=== PATIENT | female | born 1970 | race Caucasian/White ===

== ENCOUNTER 2017-06-27 17:25 | Emergency (ER) | payer SELFPAY ==
[2017-06-27 17:58] LABS: VBG PH 7.37 (7.31-7.41); VBG TOTAL CO2 29.3 mmol/L (24-29)
[2017-06-27 17:59] LABS: BASOPHILS % (AUTO) 0.6 %; EOSINOPHILS # (AUTO) 0.1 10^3/uL (0.0-0.7); EOSINOPHILS % (AUTO) 1.6 %; HCT - HEMATOCRIT 40.6 % (37.0-47.0); HGB - HEMOGLOBIN 13.8 g/dL (12.0-16.0); LYMPHOCYTES # (AUTO) 2.1 10^3/uL (1.5-3.5); LYMPHOCYTES % (AUTO) 31.3 %; MEAN CORPUSCULAR HEMOGLOBIN 29.2 pg (27.0-31.0); MEAN CORPUSCULAR HGB CONC 33.9 g/dL (32.0-36.0); MEAN CORPUSCULAR VOLUME 86.2 fL (81.0-99.0); MEAN PLATELET VOLUME 8.6 fL (7.9-10.8); MONOCYTES # (AUTO) 0.4 10^3/uL (0.0-1.0); MONOCYTES % (AUTO) 5.8 %; NEUTROPHILS % (AUTO) 60.7 %; NUCLEATED RED BLOOD CELLS AUTO 0.1 /100WBC; RED BLOOD COUNT 4.71 10^6/uL (4.20-5.40); RED CELL DISTRIBUTION WIDTH 12.1 % (12.0-15.0); UNCORRECTED WHITE BLOOD COUNT 6.6 x10^3/uL; VBG BASE EXCESS 1.7 mmol/L (-2 - +2); VBG OXYGEN SATURATION 50.9 % (60-80); WHITE BLOOD COUNT 6.6 x10^3/uL (4.8-10.8)
[2017-06-27 18:11] LABS: ALBUMIN/GLOBULIN RATIO 1.3 (1.0-2.2); BILIRUBIN,TOTAL 0.3 mg/dL (0.2-1.0); BUN - BLOOD UREA NITROGEN 16 mg/dL (6-20); CALCIUM 9.7 mg/dL (8.5-10.3); CARBON DIOXIDE - CO2 27 mmol/L (21-32); CHLORIDE 98 mmol/L (101-111); CREATININE 0.7 mg/dL (0.4-1.0); GFR - MDRD 90 (>89); GLUCOSE 350 mg/dL (70-100); LIPASE 43 U/L (22-51); SODIUM 134 mmol/L (135-145); TOTAL PROTEIN 7.2 g/dL (6.7-8.2)
[2017-06-27] MEDS ORDERED: BUTALB/ACETAM/CAFF 50/325/40MG TABLET PO STA (18:33)
[2017-06-27] MEDS ORDERED: INSULIN REGULAR HUMAN 100 UNIT/1 ML 10 ML MDV SUBQ STA (18:33)
--- NOTE | 2017-06-27 18:35 | ED Physician Documentation ---
History of Present Illness - Stated complaint Stated Complaint: AVILA,WEAKNESS - Chief complaint Chief Complaint: General - History obtained from History obtained from: Patient, Family - History of Present Illness Timing: Today Pain level max: 5 Pain level now: 5 - Additonal information Additional information: Patient is a 47-year-old female who presents to the emergency department with several complaints, the first is hyperglycemia. She is on metformin and has been a diabetic for several years. Denies any recent illness. She states that she developed a headache today as well, gradual onset, holoacranial. Has not taken anything for the pain. Patient also states that when she holds her hands up too long, her tips of her fingers become "sleepy". This resolves when she puts her hands down. Currently is not feeling the symptoms in the hands Review of Systems Constitutional: denies: Fever, Chills Eyes: denies: Decreased vision Ears: denies: Ear pain Nose: denies: Rhinorrhea / runny nose, Congestion Throat: denies: Sore throat Cardiac: denies: Chest pain / pressure Respiratory: denies: Cough, Wheezing GI: denies: Abdominal Pain, Nausea, Vomiting, Diarrhea Skin: denies: Rash Musculoskeletal: denies: Neck pain, Back pain PD PAST MEDICAL HISTORY - Present Medications Home Medications: Ambulatory Orders Medication Instructions Recorded Confirmed Glibenclamida 5 mg PO BID 06/27/17 06/27/17 Metformin HCl 1,000 mg PO BID #20 tablet 06/27/17 Metoprolol Tartrate [Lopressor] 40 mg PO BID 06/27/17 06/27/17 metFORMIN [Glucophage] 850 mg PO BID 06/27/17 06/27/17 - Allergies Allergies/Adverse Reactions: Allergies Allergy/AdvReac Type Severity Reaction Status Date / Time No Known Drug Allergies Allergy Verified 06/27/17 17:37 PD ED PE NORMAL - Vitals Vital signs reviewed: Yes - General General: Alert and oriented X 3, No acute distress, Well developed/nourished - HEENT HEENT: PERRL, Ears normal, Moist mucous membranes, Pharynx benign - Neck Neck: Supple, no meningeal sign, No bony TTP, No adenopathy, No JVD - Cardiac Cardiac: RRR, Strong equal pulses - Respiratory Respiratory: No respiratory distress, Clear bilaterally - Abdomen Abdomen: Normal bowel sounds, Soft, Non tender, Non distended - Back Back: No spinal TTP - Derm Derm: Warm and dry, No rash - Extremities Extremities: Normal ROM s pain - Neuro Neuro: Alert and oriented X 3, pr manager 2-12 intact, No motor deficit, No sensory deficit, Normal speech - Psych Psych: Normal mood, Normal affect Results - Vitals Vitals: Vital Signs - 24 hr 06/27/17 06/27/17 17:33 20:01 Temperature 36.3 C L 36.3 C L Heart Rate 79 78 Respiratory 16 20 Rate Blood Pressure 200/98 H 124/90 H O2 Saturation 98 99 Oxygen O2 Source Room air - Labs Labs: Laboratory Tests 06/27/17 06/27/17 06/27/17 17:50 17:50 17:50 WBC 6.6 RBC 4.71 Hgb 13.8 Hct 40.6 MCV 86.2 MCH 29.2 MCHC 33.9 RDW 12.1 Plt Count 239 MPV 8.6 Neut # 4.0 Lymph # 2.1 [place] # 0.4 Eos # 0.1 Baso # 0.0 Absolute Nucleated RBC 0.01 Nucleated RBCs 0.1 VBG pH 7.370 VBG pCO2 49.2 VBG pO2 26.1 VBG HCO3 27.8 VBG Total CO2 29.3 H VBG O2 Saturation 50.9 L VBG Base Excess 1.7 Sodium 134 L Potassium 4.0 Chloride 98 L Carbon Dioxide 27 Anion Gap 9.0 BUN 16 Creatinine 0.7 Estimated GFR (MDRD) 90 Glucose 350 H POC Whole Bld Glucose Calcium 9.7 Total Bilirubin 0.3 AST 16 ALT 15 Alkaline Phosphatase 88 Total Protein 7.2 Albumin 4.1 Globulin 3.1 Albumin/Globulin Ratio 1.3 Lipase 43 Serum Ketones NEGATIVE 06/27/17 06/27/17 19:06 20:02 WBC RBC Hgb Hct MCV MCH MCHC RDW Plt Count MPV Neut # Lymph # [place] # Eos # Baso # Absolute Nucleated RBC Nucleated RBCs VBG pH VBG pCO2 VBG pO2 VBG HCO3 VBG Total CO2 VBG O2 Saturation VBG Base Excess Sodium Potassium Chloride Carbon Dioxide Anion Gap BUN Creatinine Estimated GFR (MDRD) Glucose POC Whole Bld Glucose 298 H 286 H Calcium Total Bilirubin AST ALT Alkaline Phosphatase Total Protein Albumin Globulin Albumin/Globulin Ratio Lipase Serum Ketones PD MEDICAL DECISION MAKING - ED course Complexity details: reviewed results, re-evaluated patient, considered differential, d/w patient, d/w family ED course: Patient is a 47-year-old female who presents to the emergency department with a headache and hyperglycemia. Given insulin subcu and her blood glucose decreased. She is not in DKA. Headache resolved in the emergency department with Fioricet. Blood pressure also decreased. Will increase her metformin from 850 up to 1000 mg twice a day while she is visiting from [place]. Unclear etiology of the paresthesias in her hands, but is likely related to poorly controlled diabetes. Neurovascularly intact here. Patient counseled regarding signs and symptoms for which I believe and urgent re-evaluation would be necessary. Patient with good understanding of and agreement to plan and is comfortable going home at this time This document was made in part using voice recognition software. While efforts are made to proofread this document, sound alike and grammatical errors may occur. Departure - Departure Disposition: 01 Home, Self Care Clinical Impression: Hyperglycemia, Paresthesia Headache Qualifiers: Headache type: unspecified Headache chronicity pattern: acute headache Intractability: not intractable Qualified Code(s): R51 - Headache Hypertension Qualifiers: Hypertension type: unspecified Qualified Code(s): I10 - Essential (primary) hypertension Condition: Good Instructions: ED Cephalgia Unspecified, ED HTN Established, ED Hyperglycemia Diabetic Follow-Up: your,doctor in 1 week [Other] Prescriptions: Metformin HCl 1,000 mg PO BID #20 tablet Comments: Stop your metformin and start the new dosage. Return if you worsen. The tingling in your hands may be related to your diabetes, and it is important that you get better control of your blood sugars. Your blood pressure was elevated today on check in to the emergency department. This does not mean that you have hypertension, it is a common phenomenon to check into the emergency department and have elevated blood pressure. I recommend that you see your primary care physician within the week to have it rechecked when you're feeling better. Discharge Date/Time: 06/27/17 20:06
[2017-06-27] MEDS ORDERED: INSULIN ASPART 100 UNIT/1 ML 10 ML MDV SUBQ ONE (19:21)
[2017-06-27 20:02] VITALS: BP 124/90
== END 2017-06-27 20:06 | disposition home or self-care (01) ==
LOC: ED 17:25
DX: E11.65 Type 2 diabetes mellitus with hyperglycemia (principal); Z79.84 Long term (current) use of oral hypoglycemic drugs; I10 Essential (primary) hypertension; R20.2 Paresthesia of skin; R51 Headache
CPT/HCPCS: 36415; 80053; 82009; 82803; 83690; 85025; 96372; 99283; A9270

== ENCOUNTER 2017-07-26 00:33 | Emergency (ER) | payer SELFPAY ==
[2017-07-26] MEDS ORDERED: SODIUM CHLORIDE 0.9% 1,000 ML IV ONE ×2 (00:56→01:51)
--- NOTE | 2017-07-26 01:09 | ED Physician Documentation ---
History of Present Illness - Stated complaint Stated Complaint: HIGH BLOOD PRESSURE - History obtained from History obtained from: Patient, Family - Additonal information Additional information: Patient is a 47 year old female with a history of diabetes and htn who is presenting to the emergency department for elevated blood pressure, tachycardia , and pressure behind her eyes. Patient states that she ran out of her diabetes medications but had been taking some of her friends at a lower dose. Patient states that she just hasnt' been feeling well for the last few days with all of these symptoms, so the friend brought her in this evening. Review of Systems Constitutional: denies: Fever, Chills Eyes: reports: Photophobia. denies: Decreased vision Ears: denies: Ear pain, Drainage/discharge Nose: denies: Congestion Throat: denies: Dental pain / toothache, Sore throat Cardiac: reports: Chest pain / pressure, Palpitations Respiratory: denies: Dyspnea, Cough, Wheezing GI: denies: Nausea, Vomiting : denies: Dysuria, Frequency, Hesitancy Musculoskeletal: denies: Neck pain, Back pain, Extremity pain, Joint pain Neurologic: reports: Generalized weakness, Numbness, Headache. 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 - Present Medications Home Medications: Ambulatory Orders Medication Instructions Recorded Confirmed Glibenclamida 5 mg PO BID 06/27/17 06/27/17 Metformin HCl 1,000 mg PO BID #20 tablet 06/27/17 Metoprolol Tartrate [Lopressor] 40 mg PO BID 06/27/17 06/27/17 metFORMIN [Glucophage] 850 mg PO BID 06/27/17 06/27/17 metFORMIN [Glucophage] 1,000 mg PO BIDWM #60 tablet 07/26/17 - Allergies Allergies/Adverse Reactions: Allergies Allergy/AdvReac Type Severity Reaction Status Date / Time No Known Drug Allergies Allergy Verified 06/27/17 17:37 - Social History Does the pt smoke?: No Smoking Status: Never smoker - Immunizations Immunizations are current?: Yes PD ED PE NORMAL - Vitals Vital signs reviewed: Yes (hypertensive ) - General General: Alert and oriented X 3, Well developed/nourished - HEENT HEENT: Atraumatic, PERRL, Moist mucous membranes, Pharynx benign, Dentition benign - Neck Neck: Supple, no meningeal sign - Cardiac Cardiac: RRR, No murmur - Respiratory Respiratory: No respiratory distress - Abdomen Abdomen: Soft, Non tender, Non distended - Derm Derm: Normal color, Warm and dry, No rash - Extremities Extremities: No deformity, Normal ROM s pain, No calf tenderness / cord - Neuro Neuro: Alert and oriented X 3, car ferrier 2-12 intact, No motor deficit, No sensory deficit, Normal speech PD ED PE EXPANDED - Psych Psych: Anxious Results - Vitals Vitals: Vital Signs - 24 hr 07/26/17 07/26/17 07/26/17 00:40 01:32 01:43 Temperature 36.8 C Heart Rate 79 77 72 Respiratory 18 16 18 Rate Blood Pressure 181/104 H 169/94 H 154/87 H O2 Saturation 100 98 100 07/26/17 02:11 Temperature Heart Rate 76 Respiratory 16 Rate Blood Pressure 131/85 H O2 Saturation 99 Oxygen O2 Source Room air - EKG (time done) 0100 Rate: Rate (enter#) (87) Rhythm: NSR [place]: Normal Intervals: Normal [place] QRS: Normal Ischemia: Normal ST segments Compare to prior EKG: Unchanged from prior EKG - Labs Labs: Laboratory Tests 07/26/17 07/26/17 07/26/17 00:48 01:05 01:05 WBC 6.1 RBC 4.34 Hgb 12.9 Hct 37.0 MCV 85.2 MCH 29.8 MCHC 34.9 RDW 12.6 Plt Count 246 MPV 8.6 Neut # 3.4 Lymph # 2.2 [place] # 0.4 Eos # 0.1 Baso # 0.0 Absolute Nucleated RBC 0.00 Nucleated RBC % 0.0 VBG pH VBG pCO2 VBG pO2 VBG HCO3 VBG Total CO2 VBG O2 Saturation VBG Base Excess Sodium 132 L Potassium 3.7 Chloride 96 L Carbon Dioxide 26 Anion Gap 10.0 BUN 22 H Creatinine 0.8 Estimated GFR (MDRD) 77 L Glucose 424 H POC Whole Bld Glucose 422 H Calcium 9.3 Total Bilirubin 0.4 AST 15 ALT 13 Alkaline Phosphatase 98 Troponin I B-Natriuretic Peptide Total Protein 7.7 Albumin 4.3 Globulin 3.4 Albumin/Globulin Ratio 1.3 Lipase 40 TSH Urine Color Urine Clarity Urine pH Ur Specific [place] Urine Protein Urine Glucose (UA) Urine Ketones Urine Occult Blood Urine Nitrite Urine Bilirubin Urine Urobilinogen Ur Leukocyte Esterase Ur Microscopic Review Urine Culture Comments Urine HCG, Qual Serum Ketones NEGATIVE 07/26/17 07/26/17 07/26/17 01:05 01:05 01:05 WBC RBC Hgb Hct MCV MCH MCHC RDW Plt Count MPV Neut # Lymph # [place] # Eos # Baso # Absolute Nucleated RBC Nucleated RBC % VBG pH VBG pCO2 VBG pO2 VBG HCO3 VBG Total CO2 VBG O2 Saturation VBG Base Excess Sodium Potassium Chloride Carbon Dioxide Anion Gap BUN Creatinine Estimated GFR (MDRD) Glucose POC Whole Bld Glucose Calcium Total Bilirubin AST ALT Alkaline Phosphatase Troponin I < 0.04 B-Natriuretic Peptide 12 Total Protein Albumin Globulin Albumin/Globulin Ratio Lipase TSH 4.52 Urine Color Urine Clarity Urine pH Ur Specific [place] Urine Protein Urine Glucose (UA) Urine Ketones Urine Occult Blood Urine Nitrite Urine Bilirubin Urine Urobilinogen Ur Leukocyte Esterase Ur Microscopic Review Urine Culture Comments Urine HCG, Qual Serum Ketones 07/26/17 07/26/17 07/26/17 01:05 01:10 02:06 WBC RBC Hgb Hct MCV MCH MCHC RDW Plt Count MPV Neut # Lymph # [place] # Eos # Baso # Absolute Nucleated RBC Nucleated RBC % VBG pH 7.371 VBG pCO2 47.3 VBG pO2 35.8 VBG HCO3 26.8 VBG Total CO2 28.2 VBG O2 Saturation 72.8 VBG Base Excess 1.0 Sodium Potassium Chloride Carbon Dioxide Anion Gap BUN Creatinine Estimated GFR (MDRD) Glucose POC Whole Bld Glucose 209 H Calcium Total Bilirubin AST ALT Alkaline Phosphatase Troponin I B-Natriuretic Peptide Total Protein Albumin Globulin Albumin/Globulin Ratio Lipase TSH Urine Color YELLOW Urine Clarity CLEAR Urine pH 6.0 Ur Specific [place] 1.010 Urine Protein NEGATIVE Urine Glucose (UA) >=1000 H Urine Ketones NEGATIVE Urine Occult Blood NEGATIVE Urine Nitrite NEGATIVE Urine Bilirubin NEGATIVE Urine Urobilinogen 0.2 (NORMAL) Ur Leukocyte Esterase NEGATIVE Ur Microscopic Review NOT INDICATED Urine Culture Comments NOT INDICATED Urine HCG, Qual NEGATIVE Serum Ketones - Rads (name of study) chest x-ray Radiology: Final report received (no acute abnormality) ct head Radiology: Final report received (mulitple punctate calcifications consistent with previous parasitic disease) PD MEDICAL DECISION MAKING - ED course Complexity details: reviewed old records, reviewed results, re-evaluated patient , considered differential, d/w patient, d/w family ED course: Patient was seen and examined at beside. ekg was performed and was within normal limits. IV access was gained. Patient's blood glucose was 422. patient was started on a fluid bolus and [address] head was ordered. When patient returned the results were reviewed. there were multiple calcifications but no acute disease. Patients blood pressure resolved on its own. Patient's symptoms improved. Patient's repeat blood glucose was 200. Patient was made aware of the finding with the clipper and turner. Patient required no further work up and was stable for discharge with outpatient follow up. Departure - Departure Disposition: 01 Home, Self Care Clinical Impression: Hyperglycemia Condition: Good Instructions: ED Hyperglycemia Diabetic Follow-Up: primary,care provider [Other] - Within 3 Days Prescriptions: metFORMIN [Glucophage] 1,000 mg PO BIDWM #60 tablet Comments: Your symptoms today were being caused by elevated blood sugars. Your dosing will be increased to 1000mg twice a day. It is important that you consume a low salt, low sugar diet. You should follow up with your doctor as soon as possible for further evaluation and care. You can return at any time for new, worsening or uncontrollable symptoms.
[2017-07-26 01:20] LABS: VBG OXYGEN SATURATION 72.8 % (60-80); VBG PH 7.371 (7.31-7.41); VBG TOTAL CO2 28.2 mmol/L (24-29)
[2017-07-26 01:21] LABS: BILIRUBIN,URINE NEGATIVE (NEGATIVE)
[2017-07-26 01:24] LABS: BASOPHILS % (AUTO) 0.4 %; EOSINOPHILS # (AUTO) 0.1 10^3/uL (0.0-0.7); EOSINOPHILS % (AUTO) 2.1 %; HGB - HEMOGLOBIN 12.9 g/dL (12.0-16.0); LYMPHOCYTES # (AUTO) 2.2 10^3/uL (1.5-3.5); LYMPHOCYTES % (AUTO) 35.7 %; MEAN CORPUSCULAR HEMOGLOBIN 29.8 pg (27.0-31.0); MEAN CORPUSCULAR HGB CONC 34.9 g/dL (32.0-36.0); MEAN CORPUSCULAR VOLUME 85.2 fL (81.0-99.0); MEAN PLATELET VOLUME 8.6 fL (7.9-10.8); MONOCYTES # (AUTO) 0.4 10^3/uL (0.0-1.0); MONOCYTES % (AUTO) 7.1 %; NEUTROPHILS # (AUTO) 3.4 10^3/uL (1.5-6.6); NEUTROPHILS % (AUTO) 54.7 %; RED BLOOD COUNT 4.34 10^6/uL (4.20-5.40); RED CELL DISTRIBUTION WIDTH 12.6 % (12.0-15.0); UNCORRECTED WHITE BLOOD COUNT 6.1 x10^3/uL; WHITE BLOOD COUNT 6.1 x10^3/uL (4.8-10.8)
[2017-07-26] MEDS ORDERED: INSULIN REGULAR HUMAN 100 UNIT/1 ML 10 ML MDV IVP STA (01:24)
[2017-07-26 01:25] LABS: HCG UR QUAL NEGATIVE; UA CHARGE (STRIP ONLY) YES; UR CULTURE IF IND NOT INDICATED
[2017-07-26 01:30] LABS: ALBUMIN/GLOBULIN RATIO 1.3 (1.0-2.2); BILIRUBIN,TOTAL 0.4 mg/dL (0.2-1.0); BUN - BLOOD UREA NITROGEN 22 mg/dL (6-20); CALCIUM 9.3 mg/dL (8.5-10.3); CARBON DIOXIDE - CO2 26 mmol/L (21-32); CHLORIDE 96 mmol/L (101-111); CREATININE 0.8 mg/dL (0.4-1.0); GFR - MDRD 77 (>89); GLUCOSE 424 mg/dL (70-100); LIPASE 40 U/L (22-51); POTASSIUM 3.7 mmol/L (3.5-5.0); SODIUM 132 mmol/L (135-145); TOTAL PROTEIN 7.7 g/dL (6.7-8.2)
[2017-07-26] MEDS ORDERED: METOPROLOL 5 MG/5 ML VIAL IVP STA (01:32)
[2017-07-26] MEDS ORDERED: INSULIN REGULAR HUMAN 100 UNIT/1 ML 10 ML MDV ONE (01:34)
--- NOTE | 2017-07-26 01:43 | XRAY Preliminary Report ---
Exam: XR CHEST 2 VIEW PA/LAT IMPRESSION: 1. No acute abnormality seen in the chest. [facility] SITE ID: [id number]
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
--- NOTE | 2017-07-26 01:50 | CT Preliminary Report ---
Exam: CT HEAD W/O IMPRESSION: 1. No acute intracranial process identified. 2. 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 [facility] SITE ID: [id number]
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
[2017-07-26 02:12] VITALS: BP 131/85
== END 2017-07-26 02:35 | disposition home or self-care (01) ==
LOC: ED 00:33
DX: E11.65 Type 2 diabetes mellitus with hyperglycemia (principal); Z79.84 Long term (current) use of oral hypoglycemic drugs; I10 Essential (primary) hypertension
CPT/HCPCS: 36415; 70450; 71020; 80053; 81003; 81025; 82009; 82803; 83690; 83880; 84443; 84484; 85025; 93005; 96360; 99284; J1815; 81001; 87086

== ENCOUNTER 2017-08-27 00:27 | Emergency (ER) | payer SELFPAY ==
[2017-08-27] MEDS ORDERED: IBUPROFEN 600 MG TABLET PO STA (01:17)
[2017-08-27] MEDS ORDERED: LIDOCAINE VISCOUS 2% 15 ML UDC MM STA (01:17)
[2017-08-27] MEDS ORDERED: PENICILLIN VK 250 MG TABLET PO STA (01:17)
[2017-08-27] MEDS ORDERED: ACETAMINOPHEN 325 MG TABLET PO STA (01:17)
[2017-08-27] MEDS ORDERED: PENICILLIN VK 250 MG TABLET PO ONE (01:31)
[2017-08-27] MEDS ORDERED: IBUPROFEN 600 MG TABLET PO ONE (01:31)
[2017-08-27] MEDS ORDERED: LIDOCAINE VISCOUS 2% 15 ML UDC MM ONE (01:31)
[2017-08-27] MEDS ORDERED: ACETAMINOPHEN 325 MG TABLET PO ONE (01:31)
--- NOTE | 2017-08-27 01:41 | ED Physician Documentation ---
PD HPI HEENT - Stated complaint Stated Complaint: TOOTHACHE - Chief complaint Chief Complaint: Heent - History obtained from History obtained from: Patient, Friend - History of Present Illness Timing - onset: Today Timing - details: Gradual onset, Still present Location: Tooth, Mouth Worsens: Temperatures Associated symptoms: Facial swelling. No: Fever, Congestion Similar symptoms before: Work up / diagnostics, Treatment Recently seen: Not recently seen - Additional information Additional information: Patient is a 47 year old female who is presenting to the emergency department for facial pain and swelling. Patient states that it started today and has become progressively worse. patient has poor dentition and has not seen a doctor or a dentist in awhile. Review of Systems Constitutional: denies: Fever, Chills Eyes: denies: Decreased vision, Photophobia Ears: reports: Ear pain Nose: denies: Congestion, Epistaxis Throat: reports: Dental pain / toothache. denies: Oral lesions / sores, Sore throat Cardiac: denies: Chest pain / pressure, Palpitations Respiratory: reports: Reviewed and negative GI: denies: Nausea, Vomiting : reports: Reviewed and negative Skin: reports: Reviewed and negative Musculoskeletal: denies: Neck pain, Back pain, Extremity pain Neurologic: denies: Generalized weakness, Focal weakness, Headache, LOC Immunocompromised: denies: Immunocompromised PD PAST MEDICAL HISTORY - Past Medical History Past Medical History: Yes Cardiovascular: Hypertension Neuro: Headache/migraine, Other Endocrine/Autoimmune: Type 2 diabetes - Past Surgical History 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 - Present Medications Home Medications: Ambulatory Orders Medication Instructions Recorded Confirmed metFORMIN [Glucophage] 1,000 mg PO BIDWM #60 tablet 07/26/17 08/27/17 Metoprolol Tartrate 100 mg PO DAILY #30 tablet 08/10/17 08/27/17 glyBURIDE [Glyburide] 5 mg PO BID #60 tablet 08/10/17 08/27/17 diazePAM [Diazepam] 5 mg PO BID PRN #20 tablet 08/16/17 08/27/17 Chlorhexidine Gluconate 15 ml MM QID #473 ml 08/27/17 Penicillin V Potassium 500 mg PO Q6HR 10 Days tablet 08/27/17 - Allergies Allergies/Adverse Reactions: Allergies Allergy/AdvReac Type Severity Reaction Status Date / Time No Known Drug Allergies Allergy Verified 08/27/17 00:36 - Social History Does the pt smoke?: No Smoking Status: Never smoker Does the pt drink ETOH?: No Does the pt have substance abuse?: No - Immunizations Immunizations are current?: Yes - POLST Patient has POLST: No PD ED PE NORMAL - General General: Alert and oriented X 3 - HEENT HEENT: Atraumatic, PERRL - Neck Neck: Supple, no meningeal sign, No adenopathy - Cardiac Cardiac: RRR, No murmur - Respiratory Respiratory: No respiratory distress, Clear bilaterally - Abdomen Abdomen: Soft, Non tender, Non distended - Derm Derm: Normal color, Warm and dry, No rash - Extremities Extremities: No deformity, Normal ROM s pain - Neuro Neuro: Alert and oriented X 3, No motor deficit, No sensory deficit - Psych Psych: Normal mood PD ED PE EXPANDED - General General: Alert, In Pain - HEENT HEENT: Dental decay (multiple dental caries and tenderness but no drainable abscess or fluid collection) Results - Vitals Vitals: Vital Signs - 24 hr 08/27/17 08/27/17 08/27/17 00:34 00:39 01:56 Temperature 37 C Heart Rate 98 90 Respiratory 20 20 Rate Blood Pressure 160/112 H 160/90 H O2 Saturation 100 100 Oxygen O2 Source Room air PD MEDICAL DECISION MAKING - ED course Complexity details: reviewed old records, reviewed results, re-evaluated patient , considered differential, d/w patient ED course: Patient was seen and examined at bedside. patient was treated with motrin, tylenol, viscous lidocaine, and pen vk. patient responded well to the therapy. Patient's friend complained that she needed something stronger for pain. patient and friend were made aware narcotics were not indicated. patient was ok with the plan but the friend kept persisting, showing drug seeking behavior. Patient was discharged in stable condition. Departure - Departure Disposition: 01 Home, Self Care Clinical Impression: Pain due to dental caries Condition: Good Instructions: ED Tooth Pain Follow-Up: primary,dentist [Other] - Within 3 Days Prescriptions: Penicillin V Potassium 500 mg PO Q6HR 10 Days tablet Chlorhexidine Gluconate 15 ml MM QID #473 ml Comments: Your symptoms are likely secondary to your dentition and possible underlying infection. Ultimately you will need to follow up with a dentist for further care. You have been started on antibiotic pill and rinse. You can take motrin or tylenol as needed for pain. You may return to the emergency department at any time for new, worsening or uncontrollable symptoms. Discharge Date/Time: 08/27/17 01:57
[2017-08-27 01:58] VITALS: BP 160/90
== END 2017-08-27 01:57 | disposition home or self-care (01) ==
LOC: ED 00:27
DX: K02.9 Dental caries, unspecified (principal); K08.89 Other specified disorders of teeth and supporting structures; I10 Essential (primary) hypertension; E11.9 Type 2 diabetes mellitus without complications; Z79.84 Long term (current) use of oral hypoglycemic drugs
CPT/HCPCS: 99283; A9270